=== PATIENT | male | born 1940 | race Caucasian/White ===

== ENCOUNTER → 2018-10-20 | Outpatient (CLI) | payer OTHER | END | disposition home or self-care (01) | LOC: OIH 16:00 | PROVIDERS: ATTEND Internal Medicine | DX: M47.815 Spondylosis without myelopathy or radiculopathy, thoracolumbar region (principal); J44.9 Chronic obstructive pulmonary disease, unspecified | CPT/HCPCS: 71046 ==

== ENCOUNTER → 2020-11-19 | Outpatient (CLI) | payer OTHER | END | disposition home or self-care (01) | LOC: OIH 08:08 | PROVIDERS: ATTEND Internal Medicine | DX: I70.0 Atherosclerosis of aorta (principal); I10 Essential (primary) hypertension | CPT/HCPCS: 71046 ==